=== PATIENT | male | born 1960 | race Caucasian/White ===

== ENCOUNTER 2017-02-15 23:26 | Inpatient (IN) | payer BC ==
[2017-02-16] MEDS ORDERED: Nitroglycerin 2% Ointment 1 INCH/1 GM Packet ONE (00:18)
[2017-02-16] MEDS ORDERED: Acetaminophen 325 MG TAB PO PRN (00:48)
[2017-02-16] MEDS ORDERED: Nitroglycerin 0.4 MG TAB (25 Tab Bottle) SL PRN (00:48)
[2017-02-16] MEDS ORDERED: Bisacodyl 5 MG TAB PO PRN (00:48)
[2017-02-16] MEDS ORDERED: Dextrose 50% Abboject 50 ML SYRINGE SLOW IVP PRN (00:51)
[2017-02-16] MEDS ORDERED: Dextrose 5% in Water 1,000 ML IV PRN ×2 (00:51→21:01)
[2017-02-16] MEDS ORDERED: HumaLOG 300 UNITS/3 ML VIAL SC PRN ×2 (00:51→21:01)
[2017-02-16] MEDS ORDERED: Aspirin 325 MG TAB PO SCH ×2 (01:00→08:00)
[2017-02-16] MEDS ORDERED: Enoxaparin Sodium 80 MG/0.8 ML SYRINGE SC SCH (01:00)
[2017-02-16 01:19] VITALS: BMI 23.4
[2017-02-16 01:41] LABS: Troponin I 2.464 ng/mL (< 0.028)
[2017-02-16 02:37] LABS: #Eosinphils 0.1 thou/uL (0.0-0.7); #Lymphocytes 1.8 thou/uL (1.20-3.40); #Monocytes 0.4 thou/uL (0.11-0.59); #Neutrophils 2.3 thou/uL (1.40-6.50); %Basophils 0.8 % (0.0-1.0); %Eosinophils 1.4 % (0.0-10.0); %Lymphocytes 38.9 % (21.0-51.0); %Monocytes 9.4 % (0.0-10.0); Hematocrit 45.6 % (42.0-52.0); Mean Platelet Volume 7.1 fL (7.4-10.4); Red Blood Cell (RBC) Count 4.85 mill/uL (4.70-6.10); White Blood Cell (WBC) Count 4.7 thou/uL (4.8-10.8)
--- NOTE | 2017-02-16 02:42 | HP ---
PRIMARY CARE PROVIDER: Yuval Kim MD CHIEF COMPLAINT: Chest pain. HISTORY OF PRESENT ILLNESS: Mr. Catalan is a pleasant 56-year-old gentleman who was seen at [facility] on 02/16/2017, following transfer from Emergency Room at [place]. He reports that he has been feeling tired over the last week or so, but also reports that he has bee n working more and doing more things and attributed it to that. Yesterday morning, around 5:00 a.m. , he developed chest discomfort. He describes it as a retrosternal, pressure-like sensation, 4/10 i n intensity, not radiating, accompanied by generalized weakness and nausea. He reports that he drov e to work and fell asleep around 8:00 a.[address]. in his car. Around 8:22 a.m., he woke up and the chest d iscomfort had resolved. He finished work and went to see his primary care provider in the evening. He had blood work as well as electrocardiogram at her office. He then went home and fell asleep. He was contacted by his primary care physician's office to go to the emergency room because he had a heart attack. He denies any cough, fevers or chills. REVIEW OF SYSTEMS: The following complete review of systems was negative, unless otherwise mentione d in the HPI or below: Constitutional: Weight loss or gain, sense of well-being, ability to conduct usual activities, exer cise tolerance. Skin/Breast: Rash, itching, changes in hair growth or loss, nail changes, breast lumps, tenderness, swelling, nipple discharge. Eyes: Vision, double vision, tearing, blind spots, pain. ENT/Mouth: Headaches (location, time of onset, duration, precipitating factors), vertigo, lighthead edness, injury. Vision, double vision, tearing, blind spots, pain, nose bleeding, colds, obstruction , discharge, dental difficulties, gingival bleeding, dentures, neck stiffness, pain, tenderness, mas ses in thyroid or other areas. Cardiovascular: Precordial pain, substernal distress, palpitations, syncope, dyspnea on exertion, o rthopnea, nocturnal paroxysmal dyspnea, edema, cyanosis, hypertension, heart murmurs, varicosities, phlebitis, claudication. Respiratory: Pain, shortness of breath, wheezing, stridor, cough, hemoptysis, fever or night sweats . Gastrointestinal: Poor appetite, dysphagia, indigestion, abdominal pain, heartburn, eructation, andre sea, vomiting, hematemesis, jaundice, constipation, or diarrhea, abnormal stools (shon-colored, mago y, bloody, greasy, foul smelling), flatulence, hemorrhoids, recent changes in bowel habits. Genitourinary: Urgency, frequency, dysuria, nocturia, hematuria, polyuria, oliguria, unusual (or ch arlene in) color of urine, stones, hesitancy, change in size of stream, dribbling, acute retention or incontinence, libido, potency. Musculoskeletal: Pain, swelling, redness or heat of muscles or joints, limitation, of motion, muscu lar weakness, atrophy, cramps. Neurologic/Psychiatric: Convulsions, paralyses, tremor, incoordination, paresthesias, difficulties with memory of speech, sensory or motor disturbances, or muscular coordination (ataxia, tremor), emo tional problems, anxiety, depression, previous psychiatric care, unusual perceptions, hallucinations . Allergy/Immunologic: Skin rash, anemia, bleeding tendency, polydipsia, polyuria, intolerance to hea t or cold. PAST MEDICAL HISTORY: Significant for diabetes mellitus, hypertension, dyslipidemia, and asthma. PAST SURGICAL HISTORY: None. FAMILY HISTORY: Significant for brother with diabetes mellitus. SOCIAL HISTORY: The patient drinks 2 beers a day. He denies recreational drug use. He chews tobac co. ALLERGIES: No known drug allergies. CURRENT MEDICATIONS: Include lisinopril 2.5 mg daily, simvastatin 10 mg daily, and metformin 500 mg two times a day. PHYSICAL EXAMINATION: GENERAL: On examination. Mr. Catalan is awake and alert, not in acute distress. VITAL SIGNS: Blood pressure is 126/74, pulse is 61, his breathing is at rate of 18, and saturating 95% on room air. He is afebrile. EYES: No scleral icterus. No conjunctival pallor. ENT: Moist mucosal membranes, no oropharyngeal erythema or exudates. NECK: Supple, nontender, normal range of movement, trachea is midline. RESPIRATORY: Accessory muscles of breathing are not active. Chest wall movements are symmetric javier aterally. LUNGS: Clear to auscultation without wheeze, rhonchi, or crepitations. CARDIOVASCULAR: S1 and S2 are heard, regular. LUNGS: Peripheral pulses palpable. No carotid bruits. No pericardial rub. ABDOMEN: Soft, nontender. Bowel sounds heard, no hepatomegaly, no splenomegaly. NEUROLOGIC: Cranial nerves II through XII are intact. Deep tendon reflexes are 2+. MUSCULOSKELETAL: Power is 5/5 in all 4 extremities. Normal range of movement at all major extremit y joints. SKIN: No rashes or subcutaneous nodules. LYMPHATIC: No cervical lymphadenopathy. PSYCHIATRIC: Normal mood, normal affect, patient is oriented to person, place, and time. LABORATORY DATA AND IMAGING: Mr. Catalan's labs and investigations were reviewed. I have reviewed h is electrocardiogram, which shows normal sinus rhythm, no ST changes to suggest an acute coronary sy ndrome. I have also reviewed his chest x-ray, which does not show any pulmonary infiltrates. Labor atory investigations show an unremarkable CBC, unremarkable comprehensive metabolic profile, elevate d hemoglobin A1c of 8.5, elevated troponin I of 2.464. ASSESSMENT AND PLAN: Mr. Catalan is a pleasant 56-year-old gentleman who was seen at [facility] on 02/16/2017. His problem list includes: 1. Non-ST elevation myocardial infarction: Mr. Catalan appears to have had a non-ST elevation myoca rdial infarction. We will admit him to the hospital and treat him with Lovenox 1 mg/kg subcutaneous ly every 12 hours and aspirin 325 mg daily. We will check 2D echocardiogram and consult Cardiology Service. We will keep patient n.p.o. for now in case he needs cardiac catheter[facility] 2. Diabetes mellitus. Start Accu-Cheks, insulin sliding scale. Hold metformin in case he needs ca th. 3. Dyslipidemia: Continue statins. 4. Hypertension: Currently JONAH inhibitor, monitor vital signs, and titrate antihypertensives as ne eded. 5. History of daily alcohol use: Start ASE protocol. 6. Tobacco abuse: Patient has been counseled regarding tobacco cessation. Many thanks for allowing me to participate in your patient's care. Please feel free to contact me w ith any questions or concerns. LEVEL OF RISK: High. LEVEL OF COMPLEXITY: High.
[2017-02-16 03:23] LABS: Anion Gap 13 mmol/L (10-20); BUN (Urea Nitrogen) 18 mg/dL (8.4-25.7); Calc. Creatinine Clearance 72 mL/min (70-130); Calcium 9.1 mg/dL (7.8-10.44); Carbon Dioxide 27 mmol/L (22-29); Chloride 105 mmol/L (98-107); Estimated GFR-MDRD 69
[2017-02-16] MEDS: Lisinopril 2.5 MG TAB PO SCH (08:25)
[2017-02-16] MEDS ORDERED: Heparin 0 ML ONE (09:35)
[2017-02-16] MEDS ORDERED: Communication Order-Pharmacy FS SCH (09:45)
[2017-02-16] MEDS ORDERED: Sodium Chloride 0.9% 1,000 ML IV SCH ×2 (09:45→11:45)
[2017-02-16] MEDS ORDERED: Fentanyl 100 MCG/2 ML VIAL ONE (10:24)
[2017-02-16] MEDS ORDERED: Midazolam HCl 2 mg/2 ml Vial ONE (10:24)
[2017-02-16] MEDS ORDERED: Heparin 10,000 UNITS/1 ML VIAL ONE (10:55)
[2017-02-16] MEDS ORDERED: Adenosine 6 MG/2 ML VIAL ONE (10:56)
[2017-02-16] MEDS ORDERED: Nitroglycerin 100MG/250ML BOT 250 ML ONE (10:56)
[2017-02-16] MEDS ORDERED: Clopidogrel Bisulfate 300 MG TAB ONE (11:28)
[2017-02-16] MEDS ORDERED: Mag-Al 1200 mg/1200 mg/30 ML UDCUP PO PRN (11:33)
[2017-02-16] MEDS ORDERED: traMADol HCl 50 MG TAB PO PRN (11:33)
[2017-02-16] MEDS ORDERED: Milk Of Magnesia 30 ML UDCUP PO PRN (11:33)
[2017-02-16] MEDS ORDERED: Zolpidem Tartrate 5 MG TAB PO PRN (11:33)
[2017-02-16] MEDS ORDERED: cloNIDine 0.1 MG TAB PO PRN (11:33)
[2017-02-16] MEDS ORDERED: Acetaminophen/Codeine 30-300mg Tablet PO PRN (11:33)
[2017-02-16] MEDS ORDERED: Nitroglycerin 0.4 MG TAB 1 EACH SL PRN (11:33)
[2017-02-16] MEDS ORDERED: Morphine 2 MG/ML SYRINGE SLOW IVP PRN (11:33)
--- NOTE | 2017-02-16 12:03 | CON ---
DATE OF CONSULTATION: 02/16/2017 REASON FOR CONSULTATION: Elevated troponin and chest pressure. HISTORY OF PRESENT ILLNESS: Mr. Catalan is a very pleasant 56-year-old gentleman who has not been se en and evaluated by Cardiology in the past. His main risk factor for underlying coronary artery dis ease and diabetes mellitus in addition to hypertension. He states he was normal state of health, 2 days ago he developed headache and blurred vision. He also became markedly fatigued. This was new. Yesterday, he developed chest tightness that lasted for several hours, is then resolved. 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 His primary provider did draw a troponin that was elevated. He was subsequently recommended he proceed to the emergency room. He is currently pain free. Cardiac risk factors, hypertension, diabetes mellitus. PAST MEDICAL HISTORY: As above including hyperlipidemia, asthma. SOCIAL HISTORY: Positive alcohol use. He does chew tobacco. No smoking. ALLERGIES: None. MEDICATIONS: Lisinopril, Zocor, metformin. REVIEW OF SYSTEMS: Ten-point review of systems is reviewed and as above, otherwise negative. PHYSICAL EXAMINATION: VITAL SIGNS: Blood pressure 113/74, pulse 77, temperature 97.3. GENERAL: Patient is a pleasant male who is in no acute distress. The patient appears his stated age. NEUROLOGIC: The patient is alert and oriented times 3 with no focal neurologic deficits. HEENT: Sclerae without icterus. Mouth has moist mucous membranes with normal pallor. NECK: No JVD. Carotid upstroke brisk. No bruits bilaterally. LUNGS: Clear to auscultation with unlabored respirations. BACK: No scoliosis or kyphosis. CARDIAC: Regular rate and rhythm with normal S1 and S2. No S3 or S4 noted. No significant rubs, murmurs, thrills, or gallops noted throughout the precordium. PMI is not displ aced. There is no parasternal heave. ABDOMEN: Soft, nontender, nondistended. No peritoneal signs present. No hepatosplenomegaly. No a bnormal striae. EXTREMITIES: 2+ femoral and 2+ dorsalis pedis pulses. No cyanosis, clubbing, or edema. SKIN: No gross abnormalities. EKG: Normal sinus rhythm, normal EKG. LABS: Hemoglobin is 15.8. Peak troponin 2.464. IMPRESSION: Non-Q wave myocardial infarction. RECOMMENDATIONS: Mr. Catalan's symptoms certainly suggest unstable angina. His troponin was also el evated. CK-MB was not performed. At this point, would present with several options including coronary angiography versus noninvasive stress study versus medical therapy. Would certainly recommend coronary angiography given elevated troponin and symptoms suggesting unstable angina. I have been discussed all the options, he agrees. I discussed the procedure in full detail Mr. Catalan. The risks of the procedure were also discuss ed. The risks of the procedure include but are not limited to the following: , stroke, NM, ne ed for emergency surgery, loss of limb, bleeding, and infection, as well as a reaction to the dye ca using kidney failure and needing long-term dialysis. I also discussed the risks of PCI to include a ll of the above including coronary dissection and perforation in addition to acute stent thrombosis and restenosis. All questions about the procedure were answered. Given the above, the patient agre ed to proceed with coronary angiography and possible PCI. Also discussed drug-coated versus nondrug coated stent placement. There are no contraindications to proceed if needed. Further recommendati ons pending the above.
[2017-02-16 13:16] LABS: Critical Call Chem Troponin I RESULT DECREASING; Troponin I 1.472 ng/mL (< 0.028)
--- NOTE | 2017-02-16 15:21 | PDOC.EVN ---
Event Note - Event Note Event Note: Patient seen and examined. No new complaints. No chest pain. Chart reviewed. Cath today. Change Zocor to Lipitor.
[2017-02-16 18:57] LABS: Critical Call Chem Troponin I RESULT DECREASING
[2017-02-16] MEDS ORDERED: Atorvastatin Calcium 40 MG TAB PO SCH ×2 (21:00)
[2017-02-16] MEDS ORDERED: Simvastatin 20 MG TAB PO SCH (21:00)
[2017-02-17 05:35] LABS: #Eosinphils 0.1 thou/uL (0.0-0.7); #Lymphocytes 1.3 thou/uL (1.20-3.40); #Monocytes 0.5 thou/uL (0.11-0.59); #Neutrophils 2.9 thou/uL (1.40-6.50); %Basophils 0.2 % (0.0-1.0); %Eosinophils 1.6 % (0.0-10.0); %Lymphocytes 26.6 % (21.0-51.0); %Monocytes 11.1 % (0.0-10.0); Hematocrit 43.3 % (42.0-52.0); Mean Platelet Volume 6.8 fL (7.4-10.4); Red Blood Cell (RBC) Count 4.58 mill/uL (4.70-6.10); White Blood Cell (WBC) Count 4.8 thou/uL (4.8-10.8)
[2017-02-17 05:55] LABS: ALT (SGPT) 21 U/L (8-55); AST (SGOT) 20 U/L (5-34); Alkaline Phosphatase 74 U/L (40-150); Anion Gap 12 mmol/L (10-20); BUN (Urea Nitrogen) 11 mg/dL (8.4-25.7); Bilirubin, Total 0.9 mg/dL (0.2-1.2); Calc. Creatinine Clearance 70 mL/min (70-130); Calcium 8.5 mg/dL (7.8-10.44); Carbon Dioxide 25 mmol/L (22-29); Chloride 105 mmol/L (98-107); Estimated GFR-MDRD 69; Globulin 2.4 g/dL (2.4-3.5); Protein, Total 6.3 g/dL (6.0-8.3)
--- NOTE | 2017-02-17 07:01 | PRG ---
DATE OF SERVICE: 02/17/2017 HISTORY: Mr. Catalan is doing much better. No recurrent episodes of chest pain or pressure. His CK -MB continues to decline. His troponin also has declined. PHYSICAL EXAMINATION: VITAL SIGNS: Blood pressure 124/69, pulse 86, temperature 97.8. LUNGS: Clear to auscultation. CARDIAC: Regular rate and rhythm. ABDOMEN: Soft. Nontender, nondistended. EXTREMITIES: No edema. CARDIAC MEDICATIONS: Aspirin 81 q.a.m., atorvastatin 40 at bedtime, Plavix 75 daily, lisinopril 2.5 daily. IMPRESSION: 1. Unstable angina. 2. Coronary artery disease. 3. Diabetes mellitus. RECOMMENDATIONS: Mr. Catalan is doing much better today. He underwent stent placement to the LAD. We will treat the lesion noted to the intermediate ramus medically. From my standpoint, it would be okay to discharge home on aspirin, Plavix, beta akash therapy, JONAH inhibitor therapy and statin t herapy. We will follow up with Mr. Catalan in the next 1-2 weeks.
--- NOTE | 2017-02-17 07:26 | EKG ---
Test Reason : POST STENT X1-LAD Blood Pressure : / mmHG Vent. Rate : 068 BPM Atrial Rate : 068 BPM P-R Int : 148 ms QRS Dur : 088 ms QT Int : 372 ms P-R-T Axes : 061 -12 045 degrees QTc Int : 395 ms Normal sinus rhythm Normal ECG When compared with ECG of 15-FEB-2017 23:33, (Unconfirmed) No significant change was found Confirmed by DR. Nick ZAVALA (3) on 02/17/2017 7:26:14 AM Referred By: TJ Confirmed By:DR. Nick ZAVALA
[2017-02-17] MEDS ORDERED: Insulin NPH/Reg Insulin Hm 300 UNITS/3 ML VIAL SC SCH (07:30)
[2017-02-17] MEDS ORDERED: Clopidogrel Bisulfate 75 MG TAB PO SCH (09:00)
[2017-02-17] MEDS ORDERED: Metoprolol Tartrate 25 MG TAB PO SCH (09:00)
[2017-02-17] MEDS: Lisinopril 2.5 MG TAB PO SCH (09:06)
--- NOTE | 2017-02-17 12:07 | DIS ---
DATE OF DISCHARGE: 02/17/2017 DISCHARGE DISPOSITION: Home. FOLLOWUP: Follow up with primary care physician, Dr. Kim in 1 week. Follow up with Dr. Porsha hester in one week. ALLERGIES: No known drug allergies. The patient was seen and examined on the day of discharge. Denies any new complaints. No chest ishmael n, shortness of breath, palpitations. Vital signs on the day of discharge showed temperature 98.2, pulse 79, blood pressure of 110/69 with O2 saturation 96% on room air. DISCHARGE MEDICATIONS: Aspirin 81 mg daily, Plavix 75 mg daily, lisinopril 2.5 mg daily, metoprolol 12.5 mg b.i.d. to be held if systolic blood pressure is less than 110, sublingual nitroglycerin as needed, metformin 500 mg b.i.d. to be resumed after 2 days. INPATIENT CONSULTANTS: Cardiology, Dr. Alcazar. BRIEF HOSPITAL COURSE: The patient is a 56-year-old male with diabetes mellitus type 2 and hyperten fauzia who presented to the hospital with chest discomfort. His maximum troponin this admission was 3 .8. Please refer to the history and physical dated 02/15/2017 for further details. The patient was admitted to the hospital with the diagnosis of non-ST elevation [place]. He was seen by Cardiology, Dr. Alcazar. He underwent LAD stent placement. He has been cleared by Cardiology for discharge. He will follow up with Cardiology as an outpatient. FINAL DIAGNOSES: 1. Non-ST elevation myocardial infarction. 2. Coronary artery disease, status post left anterior descending stent placement this admission. 3. Diabetes mellitus type 2. 4. Hypertension. 5. Dyslipidemia. 6. Mild intermittent asthma. 7. Daily alcohol use. 8. Tobacco abuse. The patient chews tobacco. 9. Chronic kidney disease stage 2. 10. Hypertriglyceridemia. Triglyceride was 360 with cholesterol 113, LDL of 13, HDL of 28. RADIOLOGICAL FINDINGS: Echocardiogram showed left ventricular ejection fraction of 55% to 60% with mild tricuspid regurgitation, mild mitral regurgitation. The patient was extensively counseled on s ymptoms of heart failure. Lifestyle modification was emphasized. He appears stable for discharge.
[2017-02-17 13:26] VITALS: BP 132/76; TEMP 98.1
--- NOTE | 2017-02-17 15:28 | EKG ---
Test Reason : Blood Pressure : / mmHG Vent. Rate : 070 BPM Atrial Rate : 070 BPM P-R Int : 146 ms QRS Dur : 092 ms QT Int : 362 ms P-R-T Axes : 052 -09 044 degrees QTc Int : 390 ms Normal sinus rhythm Normal ECG When compared with ECG of 16-FEB-2017 12:35, No significant change was found Confirmed by DR. Nick ZAVALA (3) on 02/17/2017 3:28:07 PM Referred By: TJ Confirmed By:DR. Nick ZAVALA
== END 2017-02-17 14:05 | disposition home or self-care (01) | DRG 247 ==
LOC: ERS 23:26 → 2NO 23:56
PROVIDERS: ADMIT Internal Medicine; ATTEND Internal Medicine
PROC: 027034Z Dilation of Coronary Artery, One Artery with Drug-eluting Intraluminal Device, Percutaneous Approach (ICD-10-PCS; principal; 2017-02-16)
PROC: B240ZZ3 Ultrasonography of Single Coronary Artery, Intravascular (ICD-10-PCS; 2017-02-16)
PROC: 4A023N7 Measurement of Cardiac Sampling and Pressure, Left Heart, Percutaneous Approach (ICD-10-PCS; 2017-02-16)
PROC: B2111ZZ Fluoroscopy of Multiple Coronary Arteries using Low Osmolar Contrast (ICD-10-PCS; 2017-02-16)
PROC: B2151ZZ Fluoroscopy of Left Heart using Low Osmolar Contrast (ICD-10-PCS; 2017-02-16)
DX: I21.4 Non-ST elevation (NSTEMI) myocardial infarction (principal); E11.22 Type 2 diabetes mellitus with diabetic chronic kidney disease; I25.110 Atherosclerotic heart disease of native coronary artery with unstable angina pectoris; J45.20 Mild intermittent asthma, uncomplicated; E78.1 Pure hyperglyceridemia; N18.2 Chronic kidney disease, stage 2 (mild); I12.9 Hypertensive chronic kidney disease with stage 1 through stage 4 chronic kidney disease, or unspecified chronic kidney disease; E78.5 Hyperlipidemia, unspecified; F17.220 Nicotine dependence, chewing tobacco, uncomplicated
CPT/HCPCS: 36415; 36416; 76942; 80048; 80053; 80061; 82553; 83036; 83735; 84100; 84484; 85025; 85347; 92941; 92978; 93005; 93010; 93306; 93458; 93798; 99152; 99153; 99291; A4216; C1725; C1753; C1769; C1874; C9606; J0153; J1644; J2250; J3010